=== PATIENT | male | born 1960 ===

== ENCOUNTER 2023-09-22 12:58 | Emergency (ER) | payer BC ==
[2023-09-22] MEDS ORDERED: SODIUM CHLORIDE 0.9% 1,000 ML BAG ONE (14:40)
--- NOTE | 2023-10-29 10:12 | XR ---
Site ID [facility] Patient Jimenez Nair ID [id number] EXAMINATION TYPE: XR chest 2V DATE OF EXAM: 09/22/2023 3:09 PM CLINICAL INDICATION: Chest Pain COMPARISON: THIS EXAM WAS READ DURING PACS DOWNTIME, NO PRIORS AVAILABLE. TECHNIQUE: XR chest 2V Frontal view of the chest. FINDINGS: Lungs/Pleura: There is no evidence of pleural effusion, focal consolidation, or pneumothorax. Pulmonary vascularity: Unremarkable. Heart/mediastinum: Cardiomediastinal silhouette is unremarkable. Musculoskeletal: No acute osseous pathology. Other findings: None IMPRESSION: No acute cardiopulmonary disease/process.
== END 2023-09-22 16:39 | disposition home or self-care (01) ==
LOC: EC 12:58
CPT/HCPCS: 71046; 93005; 96360; 99285